=== PATIENT | female | born 1985 | race Caucasian/White ===

== ENCOUNTER 2020-07-25 19:56 | Emergency (ER) | payer SELFPAY ==
[2020-07-25 22:09] LABS: Absolute Lymphocytes (CBC) 2.4 K/uL (0.7-4.9); Basophils % 0.8 % (0-1.3); Hematocrit 39.6 % (36.0-45.0); MPV 9.2 fL (7.6-11.3); RBC Red Blood Cell Count 4.03 M/uL (3.86-4.86)
[2020-07-25 22:22] LABS: BUN Blood Urea Nitrogen 19 mg/dL (7-18); Bicarbonate 27 mmol/L (21-32); Glucose Level 88 mg/dL (74-106); Potassium 3.8 mmol/L (3.5-5.1); Sodium Level 140 mmol/L (136-145); Troponin (Emerg Dept Use Only) < 0.02 ng/mL (0.0-0.045)
--- NOTE | 2020-07-25 23:19 | EDPHYS ---
Physician Documentation [facility] Name: Violeta Richardson Age: 35 yrs Sex: Female : 1985 Arrival Date: 07/25/2020 Time: 20:03 Bed 7 Private MD: ED Physician Jorje Yost HPI: 07/25 22:54 This 35 yrs old Female presents to ER via Ambulatory with complaints of High rn Blood Pressure. 22:54 The patient has elevated blood pressure and discovered this work. Onset: The rn symptoms/episode began/occurred at an unknown time. Modifying factors:. Associated signs and symptoms: Pertinent positives: headache, lightheadedness. Severity of symptoms: At its worst the blood pressure was moderate, in the emergency department the blood pressure is improved. It is unknown whether or not the patient has had similar symptoms in the past. Reports high blood pressure for unknown period of time, noted at work that BP was high, works at [employer], reports mild headache, chest pain, anxiety. Does not take medication for BP. Had moderna shot a few days ago and not sure if any of these symptoms can be attributed to it. Plans to make appt with pcp for BP management, but told by nurse at work to come to ER. Currently feels better. . 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 - Social history:: Smoking status: Patient reports the use of cigarette tobacco products, smokes one-half pack cigarettes per day. - Family history:: not pertinent. - Hospitalizations: : No recent hospitalization is reported. ROS: 22:54 Constitutional: Negative for fever, chills, and weight loss, Eyes: Negative for injury, rn pain, redness, and discharge, ENT: Negative for injury, pain, and discharge, Neck: Negative for injury, pain, and swelling, Cardiovascular: Negative for palpitations, and edema, Respiratory: Negative for cough, wheezing, and pleuritic chest pain, Abdomen/GI: Negative for abdominal pain, nausea, vomiting, diarrhea, and constipation, Back: Negative for injury and pain, : Negative for injury, bleeding, discharge, and swelling, MS/Extremity: Negative for injury and deformity, Skin: Negative for injury, rash, and discoloration, Neuro: Negative for seizure Exam: 22:54 Constitutional: This is a well developed, well nourished patient who is awake, alert, rn and in no acute distress. Head/Face: Normocephalic, atraumatic. Eyes: Pupils equal round and reactive to light, extra-ocular motions intact. Lids and lashes normal. Conjunctiva and sclera are non-icteric and not injected. Cornea within normal limits. Periorbital areas with no swelling, redness, or edema. Neck: Trachea midline, no thyromegaly or masses palpated, and no cervical lymphadenopathy. Supple, full range of motion without nuchal rigidity, or vertebral point tenderness. No Meningismus. Cardiovascular: Regular rate and rhythm. No pulse deficits. Respiratory: No increased work of breathing, no retractions or nasal flaring. Abdomen/GI: Soft, non-tender Skin: Warm, dry with normal turgor. Normal color with no rashes, no lesions, and no evidence of cellulitis. MS/ Extremity: Pulses equal, no cyanosis. Neurovascular intact. Full, normal range of motion. Equal circumference. Neuro: Awake and alert, GCS 15, oriented to person, place, time, and situation. Cranial nerves II-XII grossly intact. Motor strength 5/5 in all extremities. Sensory grossly intact. Cerebellar exam normal. Normal gait. Vital Signs: 20:37 BP 171 / 96; Pulse 97; Resp 19 S; Temp 98.5(TE); Pulse Ox 98.5% on R/A; Weight 52.16 kg ca1 (R); Height 5 ft. 0 in. (152.40 cm) (R); Pain 3/10; 20:37 Body Mass Index 22.46 (52.16 kg, 152.40 cm) ca1 MDM: 21:21 Patient medically screened. rn 23:16 Differential diagnosis: Malignant HTN. Differential diagnosis: anxiety, rn hyperventilation. Data reviewed: vital signs, nurses notes, lab test result(s), EKG, radiologic studies, CT scan, plain films, and as a result, I will discharge patient. Counseling: I had a detailed discussion with the patient and/or guardian regarding: the historical points, exam findings, and any diagnostic results supporting the discharge/admit diagnosis, lab results, radiology results, the need for outpatient follow up, to return to the emergency department if symptoms worsen or persist or if there are any questions or concerns that arise at home. Response to treatment: the patient's symptoms have markedly improved after treatment, and as a result, I will discharge patient. Special discussion: I discussed with the patient/guardian in detail that at this point there is no indication for admission to the hospital. It is understood, however, that if the symptoms persist or worsen the patient needs to return immediately for re-evaluation. Special discussion: Based on the history and exam findings, there is no indication for further emergent testing or inpatient evaluation. I discussed with the patient/guardian the need to see the primary care provider for further evaluation of the symptoms. ED course: Pt improved, ambulatory without difficulty, ct head neg, cxr no acute findings, neg bloodowork and no ischemia on ecg. Will dc home with BP journal and pcp f/u. . 23:18 Counseling: I had a detailed discussion with the patient and/or guardian regarding: the rn presence of at least one elevated blood pressure reading (>120/80) during this emergency department visit. Special discussion: I have referred the patient to see his PCP for further evaluation of high blood pressure. 07/25 21:38 Order name: CBC with Diff; Complete Time: 22:31 rn 07/25 21:38 Order name: Basic Metabolic Panel; Complete Time: 22:31 rn 07/25 21:38 Order name: CT Head Brain wo Cont rn 07/25 21:38 Order name: Troponin (emerg Dept Use Only); Complete Time: 22:31 rn 07/25 21:38 Order name: EKG; Complete Time: 21:39 rn 07/25 21:38 Order name: XRAY Chest (1 view) rn 07/25 21:38 Order name: IV Start; Complete Time: 21:53 rn 07/25 21:38 Order name: EKG - Nurse/Tech; Complete Time: 21:52 rn Administered Medications: No medications were administered Disposition: 07/25/20 23:18 Discharged to Home. Impression: Hypertension, Anxiety disorder, unspecified. - Condition is Stable. - Discharge Instructions: Hypertension, Generalized Anxiety Disorder. - Medication Reconciliation Form, Thank You Letter, Antibiotic Education, Prescription Opioid Use form. - Follow up: Private Physician; When: As needed; Reason: Recheck today's complaints, Re-evaluation by your physician. - Problem is an ongoing problem. - Symptoms have improved. Signatures: Dispatcher [employer] EDJorje Batista MD MD rn Antunez, Elena, RN RN ea Acob, Radha RN TOBIN ca1 Corrections: (The following items were deleted from the chart) 23:26 23:18 07/25/2020 23:18 Discharged to Home. Impression: Hypertension; Anxiety disorder, ea unspecified. Condition is Stable. Forms are Medication Reconciliation Form, Thank You Letter, Antibiotic Education, Prescription Opioid Use. Follow up: Private Physician; When: As needed; Reason: Recheck today's complaints, Re-evaluation by your physician. Problem is an ongoing problem. Symptoms have improved. rn
--- NOTE | 2020-07-25 23:19 | ER ---
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 Ever since, BP has ca1 been high and HR has been high. 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 They said SBP was almost 200. Reports tightness of chest, dizziness and numbness at tips of fingers and mouth. Coronavirus screen: Client denies travel out of the [place] in the last 14 days. At this time, the client does not indicate any symptoms associated with coronavirus-19. Ebola Screen: Patient negative for fever greater than or equal to 101.5 degrees Fahrenheit, and additional compatible Ebola Virus Disease symptoms Patient denies exposure to infectious person. Patient denies travel to an Ebola-affected area in the 21 days before illness onset. No symptoms or risks identified at this time. Initial Sepsis Screen: Does the patient meet any 2 criteria? No. Patient's initial sepsis screen is negative. Does the patient have a suspected source of infection? No. Patient's initial sepsis screen is negative. Risk Assessment: Do you want to hurt yourself or someone else? Patient reports no desire to harm self or others. Onset of symptoms was July 25, 2020. 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 - Social history:: Smoking status: Patient reports the use of cigarette tobacco products, smokes one-half pack cigarettes per day. - Family history:: not pertinent. - Hospitalizations: : No recent hospitalization is reported. Screenin:53 Abuse screen: Denies threats or abuse. Nutritional screening: No deficits noted. ea Tuberculosis screening: No symptoms or risk factors identified. Fall Risk IV access (20 points). Assessment: 21:45 General: Appears in no apparent distress. Behavior is calm, cooperative, appropriate ea for age. Pain: Denies pain. Neuro: Level of Consciousness is awake, alert, obeys commands, Oriented to person, place, time. Cardiovascular: Patient's skin is warm and dry. Respiratory: Airway is patent Respiratory effort is even, unlabored, Respiratory pattern is regular, symmetrical. Derm: Skin is pink, warm \T\ dry. 23:26 Reassessment: Patient and/or family updated on plan of care and expected duration. Pain ea level reassessed. Patient is alert, oriented x 3, equal unlabored respirations, skin warm/dry/pink. Discharge instruction given to patient verbalized the understanding of instruction. Pt left ED ambulatory tolerating well. Vital Signs: 20:37 BP 171 / 96; Pulse 97; Resp 19 S; Temp 98.5(TE); Pulse Ox 98.5% on R/A; Weight 52.16 kg ca1 (R); Height 5 ft. 0 in. (152.40 cm) (R); Pain 3/10; 20:37 Body Mass Index 22.46 (52.16 kg, 152.40 cm) ca1 ED Course: 20:03 Patient arrived in ED. ag3 20:41 Triage completed. ca1 20:42 Arm band placed on right wrist. ca1 21:21 Jorje Yost MD is Attending Physician. rn 21:43 Alexa Mello RN is Primary Nurse. ea 21:52 XRAY Chest (1 view) In Process Unspecified. EDMS 21:53 Patient has correct armband on for positive identification. Bed in low position. Call ea light in reach. Side rails up X2. survey field technician on. Pulse ox on. NIBP on. 21:53 Inserted saline lock: 20 gauge in left antecubital area, using aseptic technique. Blood ea collected. 22:05 CT Head Brain wo Cont In Process Unspecified. EDMS 23:25 No provider procedures requiring assistance completed. IV discontinued, intact, ea bleeding controlled, No redness/swelling at site. Pressure dressing applied. Administered Medications: No medications were administered Outcome: 23:18 Discharge ordered by . rn 23:26 Discharged to home ambulatory. ea 23:26 Condition: stable 23:26 Discharge instructions given to patient, Instructed on discharge instructions, follow up and referral plans. Demonstrated understanding of instructions, follow-up care. 23:26 Patient left the ED. joann Signatures: Dispatcher [employer] EDJorje Batista MD MD rn Antunez, Elena RN RN Dilcia Luz ag3 Radha Gordon RN RN ca1
[2020-07-25 23:42] VITALS: BP 171/96; TEMP 98.5
--- NOTE | 2020-07-26 04:57 | RAD REPORT ---
EXAM DESCRIPTION: [place] Single View07/25/2020 9:52 pm CLINICAL HISTORY: Chest pain COMPARISON: 2008 FINDINGS: The lungs appear clear of acute infiltrate. The heart is normal size IMPRESSION: No acute abnormalities displayed
--- NOTE | 2020-07-26 07:36 | EKG ---
Test Date: 2020-07-25 Test Time: 20:48:44 Professor Of Literature: RAYMOND MEASUREMENT RESULTS: Intervals: Rate: 80 AL: 132 QRSD: 76 QT: 364 QTc: 419 [place]: P: 98 AL: 132 QRS: 74 T: 66 INTERPRETIVE STATEMENTS: Sinus rhythm with premature atrial complexes with aberrant conduction Septal infarct, age undetermined Abnormal ECG Compared to ECG 04/07/2017 16:26:40 Atrial premature complex(es) now present Aberrant conduction of supraventricular beat(s) now present Myocardial infarct finding now present Electronically Signed On 07-26-20 07:35:00 CDT by Marcos Conde
--- NOTE | 2020-07-26 12:31 | RAD REPORT ---
EXAM DESCRIPTION: CT - Head Brain Wo Cont - 07/26/2020 6:24 am CLINICAL HISTORY: 35 years, Female, high blood pressure COMPARISON: None. FINDINGS: Multiple transaxial tomograms of the brain were obtained from the base of the skull to the vertex without contrast. 2-D multiplanar reformats and the coronal and sagittal plane were performed and reviewed. An individualized dose optimization technique, Automated Exposure Control, was utilized for the perfo rmed procedure. Brain parenchyma as well as the ardon and white matter differentiation demonstrate to be unremarkable. There is no midline shift and/or mass effect. There is no evidence for acute hemorrhage and/or infar ction. Lateral ventricles and cisterns displace normal appearance. No intra or extra axial fluid collections were seen. The calvarium is intact with no evidence for fracture. The visualized portions of the paranasal sinuses and orbits demonstrate to be clear. IMPRESSION: NO ACUTE INTRACRANIAL HEMORRHAGE. GROSSLY UNREMARKABLE CT SCAN OF THE HEAD WITHOUT CONTRAST. Electronically signed by: Jax Lubin MD 07/25/2020 10:18 PM CDT Due to temporary technical issues with the PACS/Fluency reporting system, reports are being signed by the in house radiologist without review as a courtesy to ensure prompt reporting. The interpreting r adiologist is fully responsible for the content of the report.
== END 2020-07-25 23:26 | disposition home or self-care (01) ==
LOC: ER 19:56
DX: I10 Essential (primary) hypertension (principal); F41.9 Anxiety disorder, unspecified; F17.210 Nicotine dependence, cigarettes, uncomplicated
CPT/HCPCS: 36415; 70450; 71045; 80048; 84484; 85025; 93005; 99284

== ENCOUNTER 2021-02-06 07:45 | Emergency (ER) | payer SELFPAY ==
[2021-02-06 08:14] LABS: Urine Blood Negative (Negative); Urine Glucose Negative (Negative); Urine Protein Negative (Negative)
[2021-02-06 09:08] LABS: Absolute Lymphocytes (CBC) 1.6 K/uL (0.7-4.9); Basophils % 0.8 % (0-1.3); Hematocrit 45.6 % (36.0-45.0); Lymphocytes % 25.8 % (15.3-44.8); MPV 8.7 fL (7.6-11.3); RBC Red Blood Cell Count 4.82 M/uL (3.86-4.86)
--- NOTE | 2021-02-06 09:12 | ER ---
Nurse's Notes [facility] Name: Violeta Richardson Age: 35 yrs Sex: Female : 1985 Arrival Date: 02/06/2021 Time: 07:50 Bed 15 Private MD: Diagnosis: STD Exposure Presentation: 02/06 07:53 Chief complaint: Patient states: concern about STD. Pt denies any symptoms but reports ll3 current partner is having symptoms. Coronavirus screen: At this time, the client does not indicate any symptoms associated with coronavirus-19. Ebola Screen: No symptoms or risks identified at this time. Initial Sepsis Screen: Does the patient meet any 2 criteria? No. Patient's initial sepsis screen is negative. Does the patient have a suspected source of infection? No. Patient's initial sepsis screen is negative. Risk Assessment: Do you want to hurt yourself or someone else? Patient reports no desire to harm self or others. Onset of symptoms was February 06, 2021. 07:53 Method Of Arrival: Ambulatory 3 07:53 Acuity: BARBARA 4 ll3 Triage Assessment: 08:00 General: Appears in no apparent distress. comfortable, Behavior is cooperative, bp appropriate for age, anxious. Pain: Denies pain. EENT: No deficits noted. Neuro: No deficits noted. Cardiovascular: No deficits noted. Respiratory: No deficits noted. GI: No signs and/or symptoms were reported involving the gastrointestinal system. : No signs and/or symptoms were reported regarding the genitourinary system. Derm: No deficits noted. Musculoskeletal: No deficits noted. 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 - Social history:: Smoking status: Patient reports the use of cigarette tobacco products, smokes one-half pack cigarettes per day. Screenin:00 Abuse screen: Denies threats or abuse. Denies injuries from another. Nutritional bp screening: No deficits noted. Tuberculosis screening: No symptoms or risk factors identified. Fall Risk None identified. Assessment: 08:00 General: SEE TRIAGE NOTE. bp 08:59 Reassessment: No changes from previously documented assessment. Patient and/or family bp updated on plan of care and expected duration. Pain level reassessed. PHLEBOTOMY AT B/S FOR BLOOD DRAW. Vital Signs: 07:53 BP 138 / 108; Pulse 114; Resp 20; Temp 98.7; Pulse Ox 100% ; Weight 52.16 kg; Height 5 ll3 ft. 0 in. (152.40 cm); Pain 04/09; 09:27 BP 137 / 89; Pulse 97; Resp 20; Temp 98.5; Pulse Ox 100% ; bp 07:53 Body Mass Index 22.46 (52.16 kg, 152.40 cm) ll3 ED Course: 07:50 Patient arrived in ED. am2 07:57 Triage completed. ll3 08:00 Kaushik Mccallum, RN is Primary Nurse. bp 08:00 Arm band placed on. ll3 08:00 Patient has correct armband on for positive identification. Bed in low position. Call bp light in reach. Side rails up X2. Adult w/ patient. 08:05 Dejan Ennis MD is Attending Physician. pkl 08:21 Urine collected: clean catch specimen, eamon colored. gd 09:26 CBC with Diff Sent. bp 09:26 No provider procedures requiring assistance completed. Patient did not have IV access bp during this emergency room visit. Administered Medications: No medications were administered Outcome: 09:10 Discharge ordered by . pkl 09:26 Patient left the ED. bp 09:26 Discharged to home ambulatory, with family. bp 09:26 Condition: stable 09:26 Discharge instructions given to patient, Instructed on discharge instructions, follow up and referral plans. Demonstrated understanding of instructions, follow-up care. Signatures: Dejan Ennis MD MD pkDebby Crocker am2 Kaushik Mccallum, RN RN Bradford Morgan Lynsea, RN RN ll3 Corrections: (The following items were deleted from the chart) 08:08 07:53 Acuity: BARBARA 3 ll3 ll3
--- NOTE | 2021-02-06 09:12 | EDPHYS ---
Physician Documentation [facility] Name: Violeta Richardson Age: 35 yrs Sex: Female : 1985 Arrival Date: 02/06/2021 Time: 07:50 Bed 15 Private MD: ED Physician Dejan Ennis HPI: 02/06 08:22 This 35 yrs old Female presents to ER via Ambulatory with complaints of pkl Pelvic Pain, STD Exposure - possible. 08:22 The patient presents with a possible exposure to a sexually transmitted disease, pkl gonorrhea, chlamydia. Onset: The symptoms/episode began/occurred at an unknown time. Associated signs and symptoms: The patient has no apparent associated signs or symptoms. 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 - Social history:: Smoking status: Patient reports the use of cigarette tobacco products, smokes one-half pack cigarettes per day. ROS: 08:25 Negative for pkl 08:25 Constitutional: Negative for fever, chills, and weight loss, Eyes: Negative for injury, pain, redness, and discharge, ENT: Negative for injury, pain, and discharge, Neck: Negative for injury, pain, and swelling, Cardiovascular: Negative for chest pain, palpitations, and edema, Respiratory: Negative for shortness of breath, cough, wheezing, and pleuritic chest pain, Abdomen/GI: Negative for abdominal pain, nausea, vomiting, diarrhea, and constipation, Back: Negative for injury and pain. 08:25 : Negative for urinary symptoms. 08:25 MS/extremity: Negative for acute changes. 08:25 Skin: Negative for rash. 08:25 Neuro: Negative for altered mental status, loss of consciousness. Exam: 08:26 Head/Face: Normocephalic, atraumatic. Eyes: Pupils equal round and reactive to light, pkl extra-ocular motions intact. Lids and lashes normal. Conjunctiva and sclera are non-icteric and not injected. Cornea within normal limits. Periorbital areas with no swelling, redness, or edema. ENT: Nares patent. No nasal discharge, no septal abnormalities noted. Tympanic membranes are normal and external auditory canals are clear. Oropharynx with no redness, swelling, or masses, exudates, or evidence of obstruction, uvula midline. Mucous membranes moist. Neck: Trachea midline, no thyromegaly or masses palpated, and no cervical lymphadenopathy. Supple, full range of motion without nuchal rigidity, or vertebral point tenderness. No Meningismus. Chest/axilla: Normal chest wall appearance and motion. Nontender with no deformity. No lesions are appreciated. Cardiovascular: Regular rate and rhythm with a normal S1 and S2. No gallops, murmurs, or rubs. Normal PMI, no JVD. No pulse deficits. Respiratory: Lungs have equal breath sounds bilaterally, clear to auscultation and percussion. No rales, rhonchi or wheezes noted. No increased work of breathing, no retractions or nasal flaring. Abdomen/GI: Soft, non-tender, with normal bowel sounds. No distension or tympany. No guarding or rebound. No evidence of tenderness throughout. Back: No spinal tenderness. No costovertebral tenderness. Full range of motion. Skin: Warm, dry with normal turgor. Normal color with no rashes, no lesions, and no evidence of cellulitis. MS/ Extremity: Pulses equal, no cyanosis. Neurovascular intact. Full, normal range of motion. Neuro: Awake and alert, GCS 15, oriented to person, place, time, and situation. Cranial nerves II-XII grossly intact. Motor strength 5/5 in all extremities. Sensory grossly intact. Cerebellar exam normal. Normal gait. Vital Signs: 07:53 BP 138 / 108; Pulse 114; Resp 20; Temp 98.7; Pulse Ox 100% ; Weight 52.16 kg; Height 5 ll3 ft. 0 in. (152.40 cm); Pain 04/09; 09:27 BP 137 / 89; Pulse 97; Resp 20; Temp 98.5; Pulse Ox 100% ; bp 07:53 Body Mass Index 22.46 (52.16 kg, 152.40 cm) ll3 MDM: 08:05 Patient medically screened. pkl 09:10 Data reviewed: vital signs, nurses notes, lab test result(s). pkl 02/06 08:14 Order name: Urine Dipstick-Ancillary; Complete Time: 08:15 EDMS 02/06 08:15 Order name: Urine --Ancillary (enter results); Complete Time: 08:32 bd 02/06 08:13 Order name: Urine Dipstick-Ancillary (obtain specimen); Complete Time: 08:25 bp 02/06 08:16 Order name: CBC with Diff pkl 02/06 08:17 Order name: CBC with Automated Diff; Complete Time: 09:11 EDMS 02/06 08:19 Order name: GC (Jorden/Chl) Probe URINE EDMS 02/06 08:13 Order name: Urine Test (obtain specimen); Complete Time: 08:25 bp Administered Medications: No medications were administered Disposition Summary: 02/06/21 09:10 Discharge Ordered Location: Home pkl Problem: new pkl Symptoms: have improved pkl Condition: Stable pkl Diagnosis - STD Exposure pkl Followup: pkl - With: Private Physician - When: 2 - 3 days - Reason: Re-evaluation by your physician Discharge Instructions: - Discharge Summary Sheet iw Forms: - Medication Reconciliation Form pkl - Thank You Letter pkl - Antibiotic Education pkl - Prescription Opioid Use pkl - Work release form iw - Family Work Release iw Signatures: Dispatcher [employer] Dejan Olvera MD MD pkl Kaushik Mccallum, RN RN bp Eliazar Bro RN RN ll3
[2021-02-06 09:32] VITALS: BP 138/108; TEMP 98.7; O2SAT 100
[2021-02-11 07:34] LABS: C.trachomatis RNA,TMA Not Detected (Not Detected)
== END 2021-02-06 09:26 | disposition home or self-care (01) ==
LOC: ER 07:45
DX: R10.2 Pelvic and perineal pain (principal); Z20.2 Contact with and (suspected) exposure to infections with a predominantly sexual mode of transmission; Z88.6 Allergy status to analgesic agent; I10 Essential (primary) hypertension; F17.210 Nicotine dependence, cigarettes, uncomplicated
CPT/HCPCS: 36415; 81003; 81025; 85025; 87490; 87590; 99283

== ENCOUNTER 2021-11-03 10:40 | Emergency (ER) | payer SELFPAY ==
[2021-11-03 11:35] LABS: Urine Blood Negative (Negative); Urine Glucose Negative (Negative); Urine Protein Trace (Negative); Urine Specific Gravity >=1.030 (1.005-1.030)
[2021-11-03] MEDS ORDERED: NA CHLORIDE 0.9% 1,000 ML ONE (11:36)
[2021-11-03] MEDS ORDERED: ASPIRIN EC 81 MG TAB PO ONE (11:36)
[2021-11-03] MEDS ORDERED: ASPIRIN 81 MG CHEWABLE TABLET ONE (11:37)
[2021-11-03 12:02] LABS: Hematocrit 40.8 % (36.0-45.0); Lymphocytes % 22.4 % (15.3-44.8); MCV 92.7 fL (80-100); MPV 8.9 fL (7.6-11.3); Protime INR 0.99; RBC Red Blood Cell Count 4.41 M/uL (3.86-4.86)
[2021-11-03] MEDS ORDERED: METOPROLOL TAR 25 MG TAB ONE (12:03)
[2021-11-03 12:06] LABS: Barbiturates NEGATIVE (NEGATIVE); Benzodiazepines NEGATIVE (NEGATIVE); Cocaine NEGATIVE (NEGATIVE); METHAMPHETAM NEGATIVE (NEGATIVE); Methadone NEGATIVE (NEGATIVE); Opiates NEGATIVE (NEGATIVE); Phencyclidine NEGATIVE (NEGATIVE); THC Cannibis POSITIVE (NEGATIVE)
[2021-11-03 12:21] LABS: ALT/SGPT 19 U/L (12-78); AST/SGOT 12 U/L (15-37); Albumin 3.8 g/dL (3.4-5.0); Alkaline Phosphatase 69 U/L (45-117); BUN Blood Urea Nitrogen 14 mg/dL (7-18); Bicarbonate 28 mmol/L (21-32); Bilirubin Total 0.2 mg/dL (0.2-1.0); Glomerular Filtration Rate 118 ml/min (=/>90); Glucose Level 89 mg/dL (74-106); Lipase 64 U/L (73-393); Magnesium 2.1 mg/dL (1.8-2.4); NT PRO-BNP 47 pg/mL (<125); Potassium 4.1 mmol/L (3.5-5.1); Sodium Level 139 mmol/L (136-145); Troponin High Sensitivity 4.4 pg/mL (<58.9)
[2021-11-03 12:25] LABS: Bilirubin Direct < 0.1 mg/dL (0-0.2)
[2021-11-03 12:25] LABS: SARS-CoV-2 Antigen Rapid Res Negative (Negative)
--- NOTE | 2021-11-03 12:25 | RAD REPORT ---
EXAM DESCRIPTION: RAD - Chest Single View - 11/03/2021 12:02 pm CLINICAL HISTORY: CHEST PAIN Chest pain. COMPARISON: Chest Single View dated 07/25/2020; CHEST PA AND LAT 2 VIEW dated 03/02/2009 FINDINGS: Portable technique limits examination quality. The lungs are grossly clear. The heart is normal in size. No displaced fractures. IMPRESSION: No acute intrathoracic process suspected.
--- NOTE | 2021-11-03 12:32 | EDPHYS ---
Physician Documentation [facility] Name: Violeta Richardson Age: 36 yrs Sex: Female : 1985 Arrival Date: 11/03/2021 Time: 10:43 Bed 16 Private MD: None, None ED Physician Mich Franco HPI: 11/03 11:32 This 36 yrs old Female presents to ER via Ambulatory with complaints of High gwen Blood Pressure, Chest Pain, Arm Pain. 11:32 The patient has elevated blood pressure and discovered this at home. Onset: The gwen symptoms/episode began/occurred this morning. Modifying factors: The symptoms are aggravated by movement, The symptoms are alleviated by remaining still. Associated signs and symptoms: The patient has no apparent associated signs or symptoms. Severity of symptoms: At its worst the blood pressure was moderate, in the emergency department the blood pressure is unchanged. The patient has not experienced similar symptoms in the past. 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 - Social history:: Smoking status: Patient reports the use of cigarette tobacco products, smokes one-half pack cigarettes per day. ROS: 11:42 Constitutional: Negative for fever, chills, and weight loss, Eyes: Negative for injury, gwen pain, redness, and discharge, ENT: Negative for injury, pain, and discharge, Neck: Negative for injury, pain, and swelling, Respiratory: Negative for shortness of breath, cough, wheezing, and pleuritic chest pain, Abdomen/GI: Negative for abdominal pain, nausea, vomiting, diarrhea, and constipation, Back: Negative for injury and pain, : Negative for injury, bleeding, discharge, and swelling, MS/Extremity: Negative for injury and deformity, Skin: Negative for injury, rash, and discoloration, Neuro: Negative for headache, weakness, numbness, tingling, and seizure, Psych: Negative for depression, anxiety, suicide ideation, homicidal ideation, and hallucinations, Allergy/Immunology: Negative for hives, rash, and allergies, Endocrine: Negative for neck swelling, polydipsia, polyuria, polyphagia, and marked weight changes, Hematologic/Lymphatic: Negative for swollen nodes, abnormal bleeding, and unusual bruising. 11:42 Cardiovascular: Positive for chest pain, of the anterior aspect of left upper chest. Exam: 11:42 Constitutional: This is a well developed, well nourished patient who is awake, alert, gwen and in no acute distress. Head/Face: Normocephalic, atraumatic. Eyes: Pupils equal round and reactive to light, extra-ocular motions intact. Lids and lashes normal. Conjunctiva and sclera are non-icteric and not injected. Cornea within normal limits. Periorbital areas with no swelling, redness, or edema. ENT: Nares patent. No nasal discharge, no septal abnormalities noted. Tympanic membranes are normal and external auditory canals are clear. Oropharynx with no redness, swelling, or masses, exudates, or evidence of obstruction, uvula midline. Mucous membranes moist. Neck: Trachea midline, no thyromegaly or masses palpated, and no cervical lymphadenopathy. Supple, full range of motion without nuchal rigidity, or vertebral point tenderness. No Meningismus. Cardiovascular: Regular rate and rhythm with a normal S1 and S2. No gallops, murmurs, or rubs. Normal PMI, no JVD. No pulse deficits. Respiratory: Lungs have equal breath sounds bilaterally, clear to auscultation and percussion. No rales, rhonchi or wheezes noted. No increased work of breathing, no retractions or nasal flaring. Abdomen/GI: Soft, non-tender, with normal bowel sounds. No distension or tympany. No guarding or rebound. No evidence of tenderness throughout. Back: No spinal tenderness. No costovertebral tenderness. Full range of motion. Skin: Warm, dry with normal turgor. Normal color with no rashes, no lesions, and no evidence of cellulitis. MS/ Extremity: Pulses equal, no cyanosis. Neurovascular intact. Full, normal range of motion. Neuro: Awake and alert, GCS 15, oriented to person, place, time, and situation. Cranial nerves II-XII grossly intact. Motor strength 5/5 in all extremities. Sensory grossly intact. Cerebellar exam normal. Normal gait. Psych: Awake, alert, with orientation to person, place and time. Behavior, mood, and affect are within normal limits. 11:42 Chest/axilla: Inspection: normal, Palpation: tenderness, that is mild, of the anterior aspect of left upper chest, Axilla: are normal, no acute changes. 11:42 ECG was reviewed by the Attending Physician. Vital Signs: 10:52 BP 143 / 89; Pulse 72; Resp 17; Temp 98.4; Pulse Ox 99% ; Weight 51.26 kg; Height 5 ft. ap3 0 in. (152.40 cm); 12:15 BP 136 / 85; Pulse 62; Resp 17 S; Pulse Ox 98% on R/A; Pain 0/10; jg9 10:52 Body Mass Index 22.07 (51.26 kg, 152.40 cm) ap3 MDM: 10:51 Patient medically screened. gwen 11:44 Differential diagnosis: abnormal EKG, acute myocardial infarction, acute pericarditis, gwen anxiety, coronary artery disease chest wall pain. HEART Score: History: Slightly Suspicious (0), ECG: Normal (0), Age: < or = 45 years (0), Risk Factors: > or = 3 Risk factors for atherosclerotic disease (2), [Hypertension] [Active Smoker] [+ Family HX] Troponin: < or = 1 x Normal Limit (0). The patient's deep vein thrombosis risk score was calculated as follows: Total Score: 0. This patient was found to be at low risk for a deep vein thrombosis by using the Well's assessment criteria. The patient's pulmonary embolism risk score was calculated as follows: Total Score: 0-2 points. This patient was found to be at low risk for a pulmonary embolism by using the Well's assessment criteria. MIKE Risk Score: 1 - Three or more CAD risk factors, TOTAL SCORE = 1. Data reviewed: vital signs, nurses notes, lab test result(s), EKG, radiologic studies, plain films. Data interpreted: monitor tech: rate is 72 beats/min, rhythm is regular, Pulse oximetry: on room air is 99 %. Test interpretation: by ED physician or midlevel provider: ECG, plain radiologic studies. Counseling: I had a detailed discussion with the patient and/or guardian regarding: the historical points, exam findings, and any diagnostic results supporting the discharge/admit diagnosis, lab results, radiology results, the need for outpatient follow up, for definitive care, a route rider, a family practitioner. 11/03 10:56 Order name: SARS RAPID; Complete Time: 12:30 [facility] 11/03 11:36 Order name: Urine Dipstick-Ancillary; Complete Time: 12:30 EDMS 11/03 11:40 Order name: Urine Dipstick-Ancillary EDMS 11/03 10:56 Order name: XRAY Chest (1 view); Complete Time: 12:30 [facility] 11/03 10:56 Order name: EKG; Complete Time: 10:57 [facility] 11/03 10:56 Order name: Cardiac monitoring; Complete Time: 10:57 [facility] 11/03 11:40 Order name: Basic Metabolic Panel; Complete Time: 12:30 EDMS 11/03 11:40 Order name: Liver (Hepatic) Function; Complete Time: 12:30 EDMS 11/03 11:40 Order name: Troponin High Sensitivity; Complete Time: 12:30 EDMS 11/03 11:40 Order name: NT PRO-BNP; Complete Time: 12:30 EDMS 11/03 11:40 Order name: Magnesium; Complete Time: 12:30 EDMS 11/03 11:40 Order name: Lipase; Complete Time: 12:30 EDMS 11/03 11:40 Order name: CBC with Automated Diff; Complete Time: 12:30 EDMS 11/03 11:40 Order name: Protime (+INR); Complete Time: 12:30 EDMS 11/03 11:40 Order name: D-Dimer; Complete Time: 12:30 EDMS 11/03 11:40 Order name: Urine Drug Screen; Complete Time: 12:30 EDMS 11/03 10:56 Order name: EKG - Nurse/Tech; Complete Time: 10:57 [facility] 11/03 10:56 Order name: IV Saline Lock; Complete Time: 11:19 [facility] 11/03 10:56 Order name: Labs collected and sent; Complete Time: 11:19 [facility] 11/03 10:56 Order name: O2 Per Protocol; Complete Time: 10:57 [facility] 11/03 10:56 Order name: O2 Sat Monitoring; Complete Time: 10:57 [facility] 11/03 10:56 Order name: Urine Dipstick-Ancillary (obtain specimen); Complete Time: 11:34 [facility] 11/03 10:56 Order name: Urine Test (obtain specimen); Complete Time: 11:34 gwen EC:42 Rate is 72 beats/min. Rhythm is regular. QRS [place] is Normal. DC interval is normal. QRS gwen interval is normal. QT interval is normal. No Q waves. T waves are Normal. No ST changes noted. Clinical impression: Normal ECG and No evidence of ischemia. Interpreted by me. Reviewed by me. Administered Medications: 11:48 Drug: NS 0.9% 1000 ml Route: IV; Rate: 125 ml/hr; Site: left antecubital; jg9 12:56 Follow up: IV Status: Completed infusion; IV Intake: 800ml jg9 11:48 Not Given (Patient Refused): Aspirin Chewable Tablet 162 mg PO once jg9 11:59 Drug: ToPROL XL (metoprolol SUCCINATE) 25 mg Route: PO; jg9 12:42 Follow up: Response: No adverse reaction jg9 Point of Care Testing: Urine : 11:59 hCG Reading: Negative; Control Reading: Positive; jg9 Disposition Summary: 11/03/21 12:31 Discharge Ordered Location: Home gwen Problem: new gwen Symptoms: have improved gwen Condition: Stable gwen Diagnosis - Essential (primary) hypertension gwen - Tobacco abuse counseling gwen - Tobacco use gwen - Chest pain, unspecified gwen Followup: gwen - With: Private Physician - When: 2 - 3 days - Reason: Recheck today's complaints, Continuance of care, Re-evaluation by your physician Followup: gwen - With: - When: 2 - 3 days - Reason: Recheck today's complaints, Continuance of care, Re-evaluation by your physician Discharge Instructions: - Discharge Summary Sheet gwen - Nonspecific Chest Pain, Adult gwen - Chest Wall Pain gwen - Hypertension, Adult gwen - Steps to Quit Smoking gwen - Health Risks of Smoking gwen - Chest Wall Pain, Wrgw-ew-Ahny gwen - Nonspecific Chest Pain, Adult, Dkns-om-Ratq gwen - Hypertension, Adult, Hypo-vt-Kjna gwen - How to Take Your Blood Pressure, Jsax-ju-Qtha gwen - Aspirin and Your Heart gwen - Managing Your Hypertension gwen - Steps to Quit Smoking, [id number] gwen Forms: - Medication Reconciliation Form gwen - Thank You Letter gwen - Antibiotic Education gwen - Prescription Opioid Use gwen Prescriptions: - Toprol XL 25 mg Oral Tablet - take 1 tablet by ORAL route once daily; 20 tablet; Refills: 0, Product gwen Selection Permitted Signatures: Dispatcher [employer] Mich Kelley MD MD cha Prokisch, Amanda RN RN ap3 Keiry Lynn RN RN jg9
--- NOTE | 2021-11-03 12:32 | ER ---
Nurse's Notes [facility] Name: Violeta Richardson Age: 36 yrs Sex: Female : 1985 Arrival Date: 11/03/2021 Time: 10:43 Bed 16 Private MD: None, None Diagnosis: Essential (primary) hypertension;Tobacco abuse counseling;Tobacco use;Chest pain, unspecified Presentation: 11/03 10:52 Chief complaint: Patient states: she started having chest pain this morning when ap3 walking to work at approx 0600. patient states the pain is primarily in her left upper chest and radiates down to her left arm and left fingers. patient states that when she arrived to work, she had her BP taken and the readings were 140s/110's for approx 2 hours. 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 Coronavirus screen: At this time, the client does not indicate any symptoms associated with coronavirus-19. Ebola Screen: No symptoms or risks identified at this time. Initial Sepsis Screen: Does the patient meet any 2 criteria? No. Patient's initial sepsis screen is negative. Does the patient have a suspected source of infection? No. Patient's initial sepsis screen is negative. Risk Assessment: Do you want to hurt yourself or someone else? Patient reports no desire to harm self or others. Onset of symptoms was November 03, 2021 at 06:00. 10:52 Method Of Arrival: Ambulatory ap3 10:52 Acuity: BARBARA 2 ap3 Triage Assessment: 10:54 General: Appears comfortable, Behavior is cooperative, anxious. Pain: Complains of pain ap3 in anterior aspect of left upper chest Pain radiates to left arm Pain began gradually, 0600 this morning. Neuro: Level of Consciousness is awake, alert, obeys commands, Oriented to person, place, time, situation, Appropriate for age Moves all extremities. Speech is normal, Facial symmetry appears normal. Cardiovascular: Reports chest pain. Respiratory: Airway is patent Respiratory effort is even, unlabored, Respiratory pattern is regular, symmetrical. 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 - Social history:: Smoking status: Patient reports the use of cigarette tobacco products, smokes one-half pack cigarettes per day. Screenin:55 Abuse screen: Denies threats or abuse. Nutritional screening: No deficits noted. ap3 Tuberculosis screening: No symptoms or risk factors identified. 12:42 Fall Risk None identified. jg9 Assessment: 11:00 Reassessment: No changes from previously documented assessment. Patient and/or family jg9 updated on plan of care and expected duration. Pain level reassessed. Patient is alert, oriented x 3, equal unlabored respirations, skin warm/dry/pink. patient resting in bed, NAD, VSS. 12:00 Pain:. Pain: Complains of pain in left arm and chest and anterior aspect of left upper jg9 chest Pain currently is 5 out of 10 on a pain scale. 12:40 Reassessment: Patient and/or family updated on plan of care and expected duration. Pain jg9 level reassessed. Patient is alert, oriented x 3, equal unlabored respirations, skin warm/dry/pink. Patient states feeling better. Patient states symptoms have improved. Vital Signs: 10:52 BP 143 / 89; Pulse 72; Resp 17; Temp 98.4; Pulse Ox 99% ; Weight 51.26 kg; Height 5 ft. ap3 0 in. (152.40 cm); 12:15 BP 136 / 85; Pulse 62; Resp 17 S; Pulse Ox 98% on R/A; Pain 0/10; jg9 10:52 Body Mass Index 22.07 (51.26 kg, 152.40 cm) ap3 ED Course: 10:43 Patient arrived in ED. as 10:43 None, None is Private Physician. as 10:51 Mich Franco MD is Attending Physician. gwen 10:53 Triage completed. ap3 10:55 Arm band placed on right wrist. ap3 10:55 Patient has correct armband on for positive identification. Bed in low position. Call ap3 light in reach. Side rails up X 1. medical resident on. Pulse ox on. NIBP on. Door closed. Noise minimized. 10:55 Patient maintains SpO2 saturation greater than 95% on room air. ap3 10:55 EKG done, by ED staff, reviewed by Mich Franco MD. ap3 11:10 Keiry Lynn, RN is Primary Nurse. jg9 11:19 Inserted saline lock: 22 gauge in left antecubital area, using aseptic technique. Blood jg9 collected. 11:48 Urine Dipstick-Ancillary Sent. jg9 12:00 No apparent distress. Resting quietly. jg9 12:04 XRAY Chest (1 view) In Process Unspecified. EDPR 12:31 Marcos Conde MD is Referral Physician. [facility] 12:42 No provider procedures requiring assistance completed. jg9 12:56 IV discontinued. jg9 Administered Medications: 11:48 Drug: NS 0.9% 1000 ml Route: IV; Rate: 125 ml/hr; Site: left antecubital; jg9 12:56 Follow up: IV Status: Completed infusion; IV Intake: 800ml jg9 11:48 Not Given (Patient Refused): Aspirin Chewable Tablet 162 mg PO once jg9 11:59 Drug: ToPROL XL (metoprolol SUCCINATE) 25 mg Route: PO; jg9 12:42 Follow up: Response: No adverse reaction jg9 Medication: 12:42 VIS not applicable for this client. jg9 Point of Care Testing: Urine : 11:59 hCG Reading: Negative; Control Reading: Positive; jg9 Intake: 12:56 IV: 800ml; Total: 800ml. jg9 Outcome: 12:31 Discharge ordered by . [facility] 12:56 Discharged to home ambulatory. jg9 12:56 Condition: stable 12:56 Discharge instructions given to patient, Instructed on discharge instructions, follow up and referral plans. Demonstrated understanding of instructions, follow-up care, Prescriptions given X 1. 12:57 Patient left the ED. jg9 Signatures: Dispatcher [employer] [facility] Mich Franco MD MD cha Martinez, Amelia as Prokisch, Amanda RN RN ap3 Keiry Lynn, TOBIN RN jg9
[2021-11-03 13:47] VITALS: TEMP 98.4
[2021-11-03 13:49] VITALS: BP 136/85; O2SAT 98
--- NOTE | 2021-11-05 13:49 | EKG ---
Test Date: 2021-11-03 Test Time: 10:55:11 Plating Equipment Tender: ZEINA MEASUREMENT RESULTS: Intervals: Rate: 72 GA: 128 QRSD: 86 QT: 394 QTc: 431 [place]: P: 81 GA: 128 QRS: 76 T: 79 INTERPRETIVE STATEMENTS: Normal sinus rhythm Normal ECG Compared to ECG 07/25/2020 20:48:44 Atrial premature complex(es) no longer present Aberrant conduction of supraventricular beat(s) no longer present Myocardial infarct finding no longer present Electronically Signed On 11-05-21 13:46:06 CDT by Clay Corley
== END 2021-11-03 12:57 | disposition home or self-care (01) ==
LOC: ER 10:40
DX: R07.89 Other chest pain (principal); I10 Essential (primary) hypertension; Z71.6 Tobacco abuse counseling; Z72.0 Tobacco use; Z88.5 Allergy status to narcotic agent; Z20.822 Contact with and (suspected) exposure to COVID-19
CPT/HCPCS: 36415; 71045; 80048; 80076; 80307; 81003; 83690; 83735; 83880; 84484; 85025; 85379; 85610; 87811; 93005; 96360; 99285; J7030

== ENCOUNTER 2023-03-29 18:00 | Inpatient (IN) | payer SELFPAY ==
[2023-03-29] MEDS ORDERED: ONDANSETRON 4 MG/2 ML VIAL ONE (20:06)
[2023-03-29] MEDS ORDERED: KETOROLAC 30 MG/ML INJ ONE (20:06)
[2023-03-29] MEDS ORDERED: NA CHLORIDE 0.9% 1,000 ML ONE ×2 (20:07→23:00)
[2023-03-29 20:27] LABS: Urine Bacteria None Seen /HPF (<20); Urine Bilirubin NEGATIVE (Negative); Urine Blood 3+ (Negative); Urine Clarity Extremely Turbid (Clear); Urine Color Light-Orange (Yellow); Urine Glucose NEGATIVE (Negative); Urine Protein 2+ (Negative); Urine RBC 21-50 /HPF (None Seen); Urine Urobilinogen 2+ (Normal); Urine WBC Clump Many /HPF (None Seen)
[2023-03-29 20:27] LABS: Absolute Lymphocytes (CBC) 0.6 K/uL (0.7-4.9); Hematocrit 37.8 % (36.0-45.0); Lymphocytes % 2.9 % (15.3-44.8); MCV 90.7 fL (80-100); Platelets 326 thou/uL (152-406); RBC Red Blood Cell Count 4.17 M/uL (3.86-4.86)
[2023-03-29 20:42] LABS: Protime INR 1.2
[2023-03-29 20:45] LABS: Urine Mucus Slight /HPF (None Seen)
[2023-03-29 20:45] LABS: Albumin 3.3 g/dL (3.4-5.0); Bilirubin Total 0.6 mg/dL (0.2-1.0); Protein, Total 7.8 g/dL (6.4-8.2)
[2023-03-29 21:30] LABS: Platelet Estimate ADEQ
[2023-03-29 21:31] LABS: Blood Morphology Comment NOT SEEN (NOT SEEN)
--- NOTE | 2023-03-29 21:40 | RAD REPORT ---
EXAM DESCRIPTION: CT - Abdomen Pelvis W Contrast - 03/29/2023 9:06 pm CLINICAL HISTORY: Abdominal pain COMPARISON: 2011 TECHNIQUE: Computed axial tomography of the abdomen pelvis was obtained. 100 cc Isovue-300 was admin istered intravenously. Oral contrast was not requested which limits evaluation of bowel and appendix All CT scans are performed using dose optimization technique as appropriate and may include automated exposure control or mA/KV adjustment according to patient size. FINDINGS: Several low-density areas right kidney reaching the periphery. Enhancement of the wall of the right renal pelvis and right ureter. Bladder wall thickened Small hepatic cysts. Prominence left lobe of liver. Spleen, pancreas and adrenals are unremarkable. No evidence of diverticulitis. A 2 centimeter left ovarian cyst without significant free fluid. No followup imaging recommended. IMPRESSION: Several low-density areas right kidney reaching the periphery. Enhancement of the wall o f the right renal pelvis and right ureter. These findings likely indicate an ascending urinary tract infection / pyelonephritis
[2023-03-29] MEDS ORDERED: NA CHLORIDE 0.9% 50 ML ONE (21:52)
[2023-03-29] MEDS ORDERED: CEFTRIAXONE 1000 MG/VIAL ONE (21:52)
--- NOTE | 2023-03-29 21:56 | ER ---
Nurse's Notes [facility] Name: Violeta Richardson Age: 38 yrs Sex: Female : 1985 Arrival Date: 03/29/2023 Time: 18:00 Bed 6 Private MD: Diagnosis: Pyelonephritis acute;Sepsis, unspecified organism Presentation: 03/29 19:15 Chief complaint: Patient states: 6 DAYS SUPRAPUBIC PAIN. Coronavirus screen: At this hb time, the client does not indicate any symptoms associated with coronavirus-19. Ebola Screen: No symptoms or risks identified at this time. Initial Sepsis Screen: Does the patient meet any 2 criteria? No. Patient's initial sepsis screen is negative. Does the patient have a suspected source of infection? No. Patient's initial sepsis screen is negative. Risk Assessment: Do you want to hurt yourself or someone else? Patient reports no desire to harm self or others. Onset of symptoms is unknown. 19:15 Method Of Arrival: Ambulatory hb 19:15 Acuity: BARBARA 3 hb Triage Assessment: 23:20 General: Appears in no apparent distress. uncomfortable, Behavior is cooperative, nw1 combative. GI: No deficits noted. Reports upper abdominal pain, nausea, vomiting. Historical: - Allergies: 19:17 tramadol; hb - PMHx: 19:17 Hypertension; hb - Immunization history:: Adult Immunizations up to date. - Social history:: Smoking status: Patient denies any tobacco usage or history of. Screenin:14 [facility] ED Fall Risk Assessment (Adult) History of falling in the last 3 months, nw1 including since admission No falls in past 3 months (0 pts). [facility] ED Fall Risk Assessment (Adult) Confusion or Disorientation No (0 pts) Intoxicated or Sedated No (0 pts) Impaired Gait No (0 pts) Mobility Assist Device Used No (0 pt) Altered Elimination No (0 pt) Score/Fall Risk Level 0 - 2 = Low Risk Oriented to surroundings, Maintained a safe environment, Educated pt \\T\\ family on fall prevention, incl call for assistance when getting out of bed, Assessed \\T\\ reinforced patient's understanding of fall precautions, Provided non-skid footwear. Abuse screen: Denies threats or abuse. Denies injuries from another. Nutritional screening: No deficits noted. Tuberculosis screening: No symptoms or risk factors identified. Assessment: 19:50 Reassessment: Pt brought to chair holding area to get blood work. Pt noted with cough nw1 and this nurse requested for patient to wear mask. Pt noted upset and angry with the request to wear a mask. Explained to patient the need for mask and patient verbalized understanding for need of IV. Pt requested for boyfriend to come back and notified that he can come back once placed in room. 23:14 Reassessment: Pt noted having an attitude when asked to have a mask on. Pt addressed on nw1 attitude in which she stated she does not want to wear the mask. Notified patient of need to wear mask for my safety as well as hers and patient put on mask, still seemingly upset. Pt also noted drinking sprite brought in by patient without any vomiting noted. Pain: Complains of pain in suprapubic area. GI: Abdomen is flat, Bowel sounds present X 4 quads. Reports lower abdominal pain, intolerance of fluids, intolerance of food. 03/30 01:30 Reassessment: In to administer Tussinex 5ml, tylenol 650mg PO, and IVF of D5 1/2NS. Pt la4 asked if she wanted the medication due to her rude demeanor after I took her temperature earlier and she shoved the thermometer in my hand after checking her temp. Patient stated that she wanted the medication. Attempted to hand the patient the tussinex as I asked if she wanted the medication. Even though the patient stated yes she did not take the medication out of my hand even though I was attempting to hand it to her. The medication was them placed on the bedside table for the patient. The tylenol was also opened and the patient asked if she wanted it in which she replied, " Of course I want my temperature to go down." The tylenol was opened and placed in a medication cup and placed at pt bedside on bedside table. The patient then stated I didn't have to ask if she wanted the medication and began to become more rude. The patient was notified that i had not been in her room and that I was assisting her nurse. charge nurse called to assist and complete hanging pt IVF and notified of where oral medications were left for patient due to negative interactions with patient. Patient finally took medication when charge nurse came into room. Vital Signs: 03/29 19:15 BP 123 / 98; Pulse 127; Resp 16; Temp 99.9; Pulse Ox 100% ; Weight 47.63 kg; Height 5 hb ft. 1 in. ; 21:58 BP 102 / 66; Pulse 97; Temp 98.8(O); Pulse Ox 100% ; nw1 23:21 BP 119 / 84; Pulse 111; Pulse Ox 100% ; nw1 03/30 01:39 Pulse 102; Temp 102.7; Pulse Ox 97% ; la4 03/29 19:15 Body Mass Index 19.84 (47.63 kg, 154.94 cm) hb Reena Coma Score: 03/29 23:14 Eye Response: spontaneous(4). Motor Response: obeys commands(6). Verbal Response: nw1 oriented(5). Total: 15. ED Course: 18:03 Patient arrived in ED. ae5 18:06 [facility]C [facility] kb 18:06 Jorje Yost MD is Attending Physician. kb 19:17 Triage completed. hb 19:18 Arm band placed on. hb 20:04 Blood Culture Adult (2) Sent. nw1 20:04 Urinalysis w/ reflexes Sent. nw1 20:18 Deana Santos, RN is Primary Nurse. nw1 20:20 CBC with Diff Sent. nw1 20:20 CMP Sent. nw1 20:20 Lactate w/ 2H reflex if indic. Sent. nw1 20:20 Protime (+inr) Sent. nw1 20:20 Ptt, Activated Sent. nw1 20:20 Urinalysis w/ reflexes Sent. nw1 21:08 CT Abd/Pelvis - IV Contrast Only In Process Unspecified. EDMS 21:55 Cirilo Rodríguez MD is Hospitalizing Provider. kb 23:14 Patient has correct armband on for positive identification. Placed in gown. Bed in low nw1 position. Call light in reach. Side rails up X2. Provided Education on: POC. Client placed on continuous cardiac and pulse oximetry monitoring. NIBP monitoring applied. monitor technician on. Pulse ox on. NIBP on. Door closed. Lights dimmed. Warm blanket given. 23:14 No provider procedures requiring assistance completed. Inserted saline lock: 20 gauge nw1 in left wrist, using aseptic technique. Blood collected. 03/30 01:21 Flu Sent. nw1 01:21 SARS-COV-2 RT PCR Sent. nw 01:31 Attending Physician role handed off by Jorje Yost MD ec2 01:31 David Lara MD is Attending Physician. ec2 01:37 Jorje Yost MD is Attending Physician. ec2 02:25 Patient admitted, IV remains in place. km8 Administered Medications: 03/29 20:19 Drug: NS 0.9% IV 1000 ml IV at 1000 ml once Route: IV; Rate: 1000 ml; Site: right nw1 forearm; 20:45 Follow up: Response: No adverse reaction; IV Status: Completed infusion cp4 20:19 Drug: Ondansetron IVP 4 mg IVP once; over 2 minutes Route: IVP; Site: right forearm; nw1 20:44 Follow up: Response: No adverse reaction cp4 20:19 Drug: Ketorolac IVP 15 mg IVP once Route: IVP; Site: right wrist; nw1 20:44 Follow up: Response: No adverse reaction cp4 21:56 Drug: Rocephin IV 1 grams IV at calculated rate once; Given slow IV push per pharmacy nw instructions Route: IV; Rate: calculated rate; Site: left forearm; 03/30 02:21 Follow up: IV Status: Completed infusion 8 03/29 23:14 Drug: Potassium Chloride IV 20 mEq IV at calculated rate once; administer over 1-2 nw1 hours Route: IV; Rate: calculated rate; Site: left wrist; 03/30 02:20 Follow up: IV Status: Completed infusion 8 03/29 23:14 Drug: NS 0.9% IV 1000 ml IV at 125 ml/hr continuous Route: IV; Rate: 125 ml/hr; Site: nw1 left wrist; 03/30 02:21 Follow up: IV Status: Infusion continued upon admission km8 Medication: 03/29 23:14 VIS not applicable for this client. nw1 Outcome: 21:55 Decision to Hospitalize by Provider. 03/30 02:25 Admitted to Med/surg km8 Condition: stable Instructed on the need for admit, Demonstrated understanding of instructions, 18:34 Patient left the ED. iw Signatures: Dispatcher [facility] Taylor Medina, SHARMIN-C NATURAL DEVELOPER-Eleonora Shi RN RN iw Mel Abreu RN RN David Lara MD MD ec2 Lyndsey Botello cp4 Christianne Shay, TOBIN RN km8 Maryanne Taylor, RN RN la4 Deana Santos RN RN nw1 Bridget Haney ae5
--- NOTE | 2023-03-29 21:56 | EDPHYS ---
Physician Documentation [facility] Name: Violeta Richardson Age: 38 yrs Sex: Female : 1985 Arrival Date: 03/29/2023 Time: 18:00 Bed 6 Private MD: ED Physician Jorje Yost HPI: 03/29 22:20 This 38 yrs old Female presents to ER via Ambulatory with complaints of Nausea, Blood kb in urine. 22:20 Is a 38-year-old male who presents for abdominal pain for 6 days with difficulty kb urinating, fever, nausea, vomiting and hematuria that started yesterday. Nothing makes pain better or worse.. Historical: - Allergies: 19:17 tramadol; hb - PMHx: 19:17 Hypertension; hb - Immunization history:: Adult Immunizations up to date. - Social history:: Smoking status: Patient denies any tobacco usage or history of. ROS: 22:20 Respiratory: Negative for shortness of breath, cough, wheezing, and pleuritic chest kb pain, 22:20 Constitutional: Positive for chills, fever, 22:20 Abdomen/GI: Positive for abdominal pain, nausea and vomiting, 22:20 : Positive for hematuria, burning with urination, difficulty urinating, 22:20 All other systems are negative, Exam: 20:30 Constitutional: This is a well developed, well nourished patient who is awake, alert, kb and in no acute distress. Head/Face: Normocephalic, atraumatic. ENT: Moist Mucous membranes Cardiovascular: Regular rate Respiratory: Respirations even and unlabored. No increased work of breathing. Talking in full sentences Skin: Warm, dry with normal turgor. Normal color. MS/ Extremity: Pulses equal, no cyanosis. Neurovascular intact. Full, normal range of motion. Neuro: Awake and alert, GCS 15, oriented to person, place, time, and situation. Moves all extremities. Normal gait. 20:30 Abdomen/GI: Inspection: abdomen appears normal, Bowel sounds: normal, Palpation: soft, in all quadrants, mild abdominal tenderness, in the suprapubic area, 20:31 ECG was reviewed by the Attending Physician. kb Vital Signs: 19:15 BP 123 / 98; Pulse 127; Resp 16; Temp 99.9; Pulse Ox 100% ; Weight 47.63 kg; Height 5 hb ft. 1 in. ; 21:58 BP 102 / 66; Pulse 97; Temp 98.8(O); Pulse Ox 100% ; nw1 23:21 BP 119 / 84; Pulse 111; Pulse Ox 100% ; nw1 03/30 01:39 Pulse 102; Temp 102.7; Pulse Ox 97% ; la4 03/29 19:15 Body Mass Index 19.84 (47.63 kg, 154.94 cm) hb Winn Coma Score: 03/29 23:14 Eye Response: spontaneous(4). Motor Response: obeys commands(6). Verbal Response: nw1 oriented(5). Total: 15. MDM: 18:06 Patient medically screened. kb 22:21 Differential diagnosis: Nonspecific abd pain, UTI, kidney stone, pyelonephritis, kb sepsis. Data reviewed: vital signs, nurses notes. Consideration of Admission/Observation Patient was admitted/placed on observation. Escalation of care including admission/observation considered. Management of patient was discussed with the following: Hospitalist: Vikki London NP excepts patient for admission under Dr. Rodríguez. Counseling: I had a detailed discussion with the patient and/or guardian regarding the historical points, exam findings, and any diagnostic results supporting the discharge/admit diagnosis, lab results, radiology results, the need for further work-up and treatment in the hospital. 03/29 18:21 Order name: Blood Culture Adult (2) kb 03/29 18:21 Order name: CBC with Diff; Complete Time: 21:42 kb 03/29 18:21 Order name: CMP; Complete Time: 20:48 kb 03/29 18:21 Order name: Lactate w/ 2H reflex if indic.; Complete Time: 20:48 kb 03/29 18:21 Order name: Protime (+inr); Complete Time: 20:48 kb 03/29 18:21 Order name: Ptt, Activated; Complete Time: 20:48 kb 03/29 18:21 Order name: Urinalysis w/ reflexes; Complete Time: 20:48 kb 03/29 18:21 Order name: Test, Urine; Complete Time: 20:48 kb 03/29 20:45 Order name: Urine Culture EDMS 03/29 21:31 Order name: Manual Differential; Complete Time: 21:42 EDMS 03/29 23:55 Order name: Urinalysis w/ reflexes EDMS 03/29 23:55 Order name: CBC with Automated Diff EDMS 03/29 23:55 Order name: CBC with Automated Diff; Complete Time: 06:51 EDMS 03/29 23:55 Order name: Comprehensive Metabolic Panel EDMS 03/29 23:55 Order name: Comprehensive Metabolic Panel; Complete Time: 06:51 EDMS 03/29 23:55 Order name: Magnesium EDMS 03/29 23:55 Order name: Magnesium; Complete Time: 06:51 EDMS 03/30 00:05 Order name: Flu kb 03/30 00:05 Order name: SARS-COV-2 RT PCR kb 03/30 01:41 Order name: SARS-COV-2 RT PCR; Complete Time: 04:42 EDMS 03/30 01:42 Order name: Influenza Screen (A ; Complete Time: 04:42 EDMS 03/29 18:21 Order name: CT Abd/Pelvis - IV Contrast Only; Complete Time: 21:42 kb 03/29 23:55 Order name: Chest Pa And Lat (2 Views); Complete Time: 16:58 EDMS 03/29 18:21 Order name: EKG; Complete Time: 18:22 kb 03/29 18:21 Order name: Cardiac monitoring; Complete Time: 20:44 kb 03/29 18:21 Order name: EKG - Nurse/Tech; Complete Time: 19:42 kb 03/29 18:21 Order name: IV Saline Lock - Large Bore; Complete Time: 19:45 kb 03/29 18:21 Order name: Labs collected and sent; Complete Time: 19:46 kb 03/29 18:21 Order name: O2 Per Protocol; Complete Time: 20:44 kb 03/29 18:21 Order name: O2 Sat Monitoring; Complete Time: 20:44 kb 03/29 18:21 Order name: Vital Signs; Complete Time: 20:44 kb EC: Rate is 107 beats/min. Rhythm is regular. QRS [place] is Normal. VT interval is normal at kb 130 msec. QRS interval is normal at 78 msec. QT interval is normal at 440 msec. Administered Medications: 20:19 Drug: NS 0.9% IV 1000 ml IV at 1000 ml once Route: IV; Rate: 1000 ml; Site: right nw1 forearm; 20:45 Follow up: Response: No adverse reaction; IV Status: Completed infusion cp4 20:19 Drug: Ondansetron IVP 4 mg IVP once; over 2 minutes Route: IVP; Site: right forearm; nw1 20:44 Follow up: Response: No adverse reaction cp4 20:19 Drug: Ketorolac IVP 15 mg IVP once Route: IVP; Site: right wrist; nw1 20:44 Follow up: Response: No adverse reaction cp4 21:56 Drug: Rocephin IV 1 grams IV at calculated rate once; Given slow IV push per pharmacy nw1 instructions Route: IV; Rate: calculated rate; Site: left forearm; 03/30 02:21 Follow up: IV Status: Completed infusion [facility] 03/29 23:14 Drug: Potassium Chloride IV 20 mEq IV at calculated rate once; administer over 1-2 nw1 hours Route: IV; Rate: calculated rate; Site: left wrist; 03/30 02:20 Follow up: IV Status: Completed infusion [facility] 03/29 23:14 Drug: NS 0.9% IV 1000 ml IV at 125 ml/hr continuous Route: IV; Rate: 125 ml/hr; Site: nw1 left wrist; 03/30 02:21 Follow up: IV Status: Infusion continued upon admission 8 Disposition: 03/31 08:56 Co-signature as Attending Physician, Jorje Yost MD I reviewed the patient's care rn provided by the Advanced Practice Provider and agree with the diagnosis and treatment plan. Disposition Summary: 03/29/23 21:55 Hospitalization Ordered Notes: Hospitalization Status: Observation kb Provider: Cirilo Rodríguez Condition: Stable kb Problem: new kb Symptoms: are unchanged kb Bed/Room Type: Standard Location: Telemetry/MedSurg (observation)(03/30/23 16:56) eb Room Assignment: 417(03/30/23 16:56) eb Diagnosis - Pyelonephritis acute kb - Sepsis, unspecified organism kb Forms: - Medication Reconciliation Form kb - SBAR form kb - Leadership Thank You Letter kb Signatures: Dispatcher [employer] Taylor Carlson, SRAVAN FINNEY-Vikki Restrepo FNP-C FNP-Jorje Paige MD MD rn Attema, Lee, FNP-C FNP-ClaNatalya Myles RN RN cg Baxter, Heather, RN RN hb Botello, Elizabeth eb Tom, Deana, RN RN nw1 Lyndsey Botello cp4 Christianne Shay RN km8 Corrections: (The following items were deleted from the chart) 03/29 22:18 21:55 Telemetry/MedSurg (observation) kb cg : 21:55 kb cg 03/30 16:56 03/29 22:18 [facility] ER HOLD cg eb 03/30 16:56 03/29 22:18 ERHOLD- cg eb
[2023-03-29] MEDS ORDERED: KCL 20 MEQ/100 mL IVPB 100 ML IV ONE (22:59)
[2023-03-29] MEDS ORDERED: PROMETHAZINE 25 MG TABLET PO PRN (23:46)
[2023-03-29] MEDS ORDERED: HYDROCODONE/CHLORPHEN 5 ML/OSYR PO ONE (23:46)
[2023-03-29] MEDS: ACETAMINOPHEN 325 MG TABLET PO PRN (23:50)
[2023-03-30] MEDS ORDERED: HYDROCODONE/CHLORPHEN 5 ML/OSYR ONE (01:25)
[2023-03-30] MEDS ORDERED: ACETAMINOPHEN 325 MG TABLET ONE ×3 (01:25→15:09)
[2023-03-30] MEDS ORDERED: D5.45NS W/KCL 20MEQ 1,000 ML IV ONE ×2 (01:26→11:14)
--- NOTE | 2023-03-30 01:32 | P.HP ---
Certification for Inpatient Patient admitted to: Inpatient With expected LOS: >2 Midnights Patient will require the following post-hospital care: None Practitioner: I am a practitioner with admitting privileges, knowledge of patient current condition, hospital course, and medical plan of care. Services: Services provided to patient in accordance with Admission requirements found in Title 42 Section 412.3 of the Code of Federal Regulations Patient History Date of Service: 03/30/23 Primary Care Provider: None Reason for admission: Pyelonephritis, sepsis, hypokalemia History of Present Illness: This Dylan is a 38-year-old with no medical history. She has had 6 days of suprapubic pain, today she started running fever. She presents to the emergency department tachycardic, febrile, complaining of pain. She is noted to have a consistent cough on exam. Evaluation in the emergency department reveals a white count of 22.4 thousand with a left shift, segs at 87%, bands 2%. Blood cultures were obtained and patient received 1 L of normal saline and 1 g of Rocephin IV. CT evaluation of the abdomen and pelvis reveal pyelonephritis. Allergies tramadol Allergy (Verified 03/30/23 03:16) Itching Home medications list reviewed: Yes (None) Home Medications: Melatonin 10 - 20 mg PO BEDTIME 03/30/23 - Past Medical/Surgical History Has patient received pneumonia vaccine in the past: No Diabetic: No Psychosocial/ Personal History: Patient lives alone - Family History Mother -: Heart disease - Social History Smoking Status: Light Tobacco smoker (1-9 cigarettes/day) Patient receptive to therapy: No Alcohol use: Yes CD- Drugs: No Caffeine use: Yes Place of Residence: Home Review of Systems 10-point ROS is otherwise unremarkable General: Fever, Malaise Respiratory: Cough Cardiovascular: Light Headedness Genitourinary: As per HPI Physical Examination - Vital Signs Temperature: 100.8 F Blood Pressure: 102/66 Pulse: 122 Respirations: 24 Pulse Ox (%): 100 - Physical Exam General: Alert, Oriented x3, Mild distress HEENT: Atraumatic, PERRLA Neck: Supple, 2+ carotid pulse no bruit Respiratory: Clear to auscultation bilaterally, Other (Paroxysmal cough) Cardiovascular: Regular rate/rhythm, Other (Tachycardia) Capillary refill: <2 Seconds Gastrointestinal: Normal bowel sounds, Soft and benign, Other (Mild right flank pain) Musculoskeletal: No clubbing Integumentary: No rashes Neurological: Normal speech, Normal tone External genitalia: Deferred Rectal: Deferred - Studies Laboratory Data (last 24 hrs) 03/29/23 03/29/23 03/29/23 20:15 20:15 20:15 WBC 22.40 H Hgb 13.0 Hct 37.8 Plt Count 326 PT 13.1 H INR 1.20 APTT 30.8 Sodium 134 L Potassium 3.0 L BUN 15 Creatinine 0.67 Glucose 142 H Total Bilirubin 0.6 AST 73 H ALT 111 H Alkaline Phosphatase 111 Assessment and Plan - Plan Pyelonephritis Blood cultures pending Rocephin 1g IV twice daily Sepsis Sepsis fluids given in the ER Will continue hydration while inpatient Monitor vital signs including temperature Hypokalemia 20 mEq IV given in the ER Will start 0.45% NS with 20 of KCL at 125 mL an hour Monitor and replenish electrolytes as needed - Advance Directives Does patient have a Living Will: No Does patient have a Durable POA for Healthcare: No
[2023-03-30] MEDS: D5.45NS W/KCL 20MEQ 1,000 ML IV SCH ×5 (02:21→23:49)
[2023-03-30 02:26] VITALS: BMI 19.8
[2023-03-30 04:48] LABS: Absolute Lymphocytes (CBC) 1.1 K/uL (0.7-4.9); Hematocrit 34.9 % (36.0-45.0); MCV 92.4 fL (80-100); MPV 8.2 fL (7.6-11.3); Platelets 250 thou/uL (152-406); RBC Red Blood Cell Count 3.78 M/uL (3.86-4.86)
[2023-03-30 05:12] LABS: Albumin 2.5 g/dL (3.4-5.0); Bilirubin Total 0.4 mg/dL (0.2-1.0); Magnesium 1.8 mg/dL (1.6-2.4); Potassium 3.5 mEq/L (3.5-5.1); Protein, Total 6.3 g/dL (6.4-8.2)
[2023-03-30] MEDS ORDERED: POTASSIUM 25 MEQ EFFERV TAB PO ONE (06:24)
[2023-03-30] MEDS ORDERED: POTASSIUM 25 MEQ EFFERV TAB ONE (06:33)
[2023-03-30] MEDS ORDERED: ONDANSETRON 4 MG/2 ML VIAL ONE (06:55)
[2023-03-30] MEDS ORDERED: ONDANSETRON 4 MG/2 ML VIAL IV ONE (06:59)
[2023-03-30] MEDS: ACETAMINOPHEN 325 MG TABLET PO PRN ×2 (07:00→23:49)
[2023-03-30] MEDS ORDERED: PHENAZOPYRIDINE 100MG TAB PO PRN (07:26)
[2023-03-30] MEDS ORDERED: IBUPROFEN 200 MG TAB PO ONE (07:27)
[2023-03-30] MEDS ORDERED: ONDANSETRON 4 MG/2 ML VIAL IV PRN (07:27)
[2023-03-30] MEDS: IBUPROFEN 400 MG TAB PO ONE ×2 (07:39→07:43)
[2023-03-30] MEDS ORDERED: NA CHLORIDE 0.9% 1,000 ML IV ONE (07:45)
[2023-03-30] MEDS: HYDROCODONE/APAP 5/325 MG TAB PO PRN ×3 (07:45→20:33)
[2023-03-30] MEDS: ENOXAPARIN 40 MG/0.4 ML SQ SCH (09:00)
[2023-03-30] MEDS: CEFTRIAXONE 1,000 MG in NA CHLORIDE 0.9% 50 ML IVPB SCH ×2 (09:00→20:36)
--- NOTE | 2023-03-30 09:00 | RAD REPORT ---
EXAM DESCRIPTION: RAD - Chest Pa And Lat (2 Views) - 03/30/2023 8:11 am CLINICAL HISTORY: sepsis, cough Chest pain. COMPARISON: <Comparisons> FINDINGS: The lungs are clear. The heart is normal in size. No displaced fractures. IMPRESSION: No acute or concerning finding suspected.
--- NOTE | 2023-03-30 10:02 | P.PN ---
Date of Service: 03/30/23 Subjective: Still having lower abdominal pain/dysuria Stabbing fever/chills No acute events overnight ROS: 10 point ROS as noted above, otherwise negative Physical exam GEN: Alert, oriented, NAD HEENT: Normal conjunctiva, sclera anicteric CV: Regular rate and rhythm, no edema Pulm: Nonlabored respirations on room air ABD: Soft, mild lower abdominal tenderness, nondistended MSK: No joint tenderness Integumentary: No rashes Neuro: Normal speech, normal affect Vitals reviewed Problem List Sepsis secondary to pyelonephritis Hypokalemia COVID-19 positive Plan Sepsis secondary to pyelonephritis Continue IV fluids, empiric antibiotics with Rocephin Follow urine/blood cultures Still febrile Hypokalemia Continue potassium continue IV fluids, potassium replacement protocol COVID-19 positive Isolation precautions As needed cough medication VTE: Lovenox Code: Full Dispo: 2 to 3 days pending cultures Time Spent Managing Pts Care (In Minutes): 35
[2023-03-30] MEDS ORDERED: CEFTRIAXONE 1000 MG/VIAL ONE (11:13)
[2023-03-30] MEDS ORDERED: ENOXAPARIN 40 MG/0.4 ML SQ ONE (11:14)
[2023-03-30] MEDS ORDERED: HYDROCODONE/APAP 5/325 MG TAB ONE ×2 (14:29→14:46)
[2023-03-30] MEDS ORDERED: DIPHENHYDRAMINE 50 MG/ML VIAL ONE (15:09)
[2023-03-30] MEDS ORDERED: KETOROLAC 30 MG/ML INJ ONE (15:09)
[2023-03-30] MEDS ORDERED: METOCLOPRAMIDE 10 MG/2mL INJ ONE (15:10)
[2023-03-30] MEDS ORDERED: BENZONATATE 100 MG CAP PO ONE (15:10)
[2023-03-30] MEDS: KETOROLAC 30 MG/ML INJ IV ONE ×2 (15:12→15:24)
[2023-03-30] MEDS: DIPHENHYDRAMINE 50 MG/ML VIAL IV ONE ×2 (15:12→15:24)
[2023-03-30] MEDS: BENZONATATE 100 MG CAP PO PRN ×2 (15:24→23:49)
[2023-03-30] MEDS ORDERED: METOCLOPRAMIDE 10 MG/2mL INJ IV SCH (16:00)
[2023-03-30] MEDS ORDERED: NA CHLORIDE 0.9% 1,000 ML ONE (17:56)
[2023-03-31 06:02] LABS: Absolute Lymphocytes (CBC) 1.4 K/uL (0.7-4.9); Hematocrit 32.6 % (36.0-45.0); MCV 92.5 fL (80-100); Platelets 254 thou/uL (152-406); RBC Red Blood Cell Count 3.52 M/uL (3.86-4.86)
[2023-03-31 06:09] LABS: Albumin 2.2 g/dL (3.4-5.0); Bilirubin Total 0.2 mg/dL (0.2-1.0); Potassium 3.8 mEq/L (3.5-5.1); Protein, Total 6.1 g/dL (6.4-8.2)
[2023-03-31] MEDS: HYDROCODONE/APAP 5/325 MG TAB PO PRN ×3 (06:24→19:56)
[2023-03-31] MEDS: ENOXAPARIN 40 MG/0.4 ML SQ SCH ×2 (07:48→07:59)
[2023-03-31] MEDS: CEFTRIAXONE 1,000 MG in NA CHLORIDE 0.9% 50 ML IVPB SCH ×2 (07:48→19:57)
[2023-03-31] MEDS: D5.45NS W/KCL 20MEQ 1,000 ML IV SCH ×2 (07:51→15:45)
[2023-03-31] MEDS ORDERED: POTASSIUM CL SA 10 MEQ TAB PO ONE (09:00)
--- NOTE | 2023-03-31 09:29 | P.PN ---
Date of Service: 03/31/23 Subjective: Still having lower abdominal pain/dysuria Fever again overnight WBC improving ROS: 10 point ROS as noted above, otherwise negative Physical exam GEN: Alert, oriented, NAD HEENT: Normal conjunctiva, sclera anicteric CV: Regular rate and rhythm, no edema Pulm: Nonlabored respirations on room air ABD: Soft, mild lower abdominal tenderness, nondistended MSK: No joint tenderness Integumentary: No rashes Neuro: Normal speech, normal affect Vitals reviewed Problem List Sepsis secondary to pyelonephritis Hypokalemia COVID-19 positive Plan Sepsis secondary to pyelonephritis Continue IV fluids, empiric antibiotics with Rocephin blood culture NGTB awaiting urine culture Still febrile Hypokalemia Continue potassium continue IV fluids, potassium replacement protocol COVID-19 positive Isolation precautions As needed cough medication VTE: Lovenox Code: Full Dispo: 1 to 2 days pending cultures, fever free Time Spent Managing Pts Care (In Minutes): 35
[2023-03-31] MEDS ORDERED: SMZ./TMP. 800/160 MG TABLET PO ONE (09:30)
[2023-03-31] MEDS: SMZ./TMP. 800/160 MG TABLET PO SCH ×2 (10:16→19:56)
[2023-03-31] MEDS: BENZONATATE 100 MG CAP PO PRN ×2 (13:00→19:57)
[2023-03-31] MEDS: ACETAMINOPHEN 325 MG TABLET PO PRN (14:06)
[2023-04-01] MEDS: ENOXAPARIN 40 MG/0.4 ML SQ SCH (08:23)
[2023-04-01] MEDS: CEFTRIAXONE 1,000 MG in NA CHLORIDE 0.9% 50 ML IVPB SCH (08:23)
[2023-04-01] MEDS: SMZ./TMP. 800/160 MG TABLET PO SCH (08:23)
[2023-04-01 08:53] VITALS: BP 141/87; TEMP 98.3
[2023-04-01 10:15] VITALS: O2SAT 99
--- NOTE | 2023-04-01 10:21 | P.DS ---
Admission Date: 03/29/23 Discharge Date: 04/01/23 Primary Care Provider: None Disposition: ROUTINE DISCHARGE Discharge Condition: GOOD Reason for Admission: Pyelonephritis, sepsis, hypokalemia Brief History of Present Illness: This Dylan is a 38-year-old with no medical history. She has had 6 days of suprapubic pain, today she started running fever. She presents to the emergency department tachycardic, febrile, complaining of pain. She is noted to have a consistent cough on exam. Evaluation in the emergency department reveals a white count of 22.4 thousand with a left shift, segs at 87%, bands 2%. Blood cultures were obtained and patient received 1 L of normal saline and [address] IV. CT evaluation of the abdomen and pelvis reveal pyelonephritis. Hospital Course: Problem List Sepsis secondary to pyelonephritis-urine culture with E. coli, Staph aureus Hypokalemia COVID-19 positive Patient was admitted for pyelonephritis, COVID-19 viral illness. She was febrile for the first 48 hours. Blood cultures with no growth, urince culture with E.coli and Staph aureus both sensitive to bactrim. She has now been fever free and feeling much better. Stable for discharge. Please observe droplet/contact precautions for your viral illness/COVID, wear a mask and wash your hands frequently. New prescriptions Bactrim DS one pill twice daily for 7 days Tessalon pearle 100mg as needed three times daily for cough Please follow up with PCP in 1-2 weeks. Vital Signs/Physical Exam: Temp Pulse Resp BP Pulse Ox 98.3 F 75 16 141/87 H 99 04/01/23 08:00 04/01/23 08:00 04/01/23 08:00 04/01/23 08:00 04/01/23 08:00 General: Alert, In no apparent distress, Oriented x3 HEENT: Atraumatic, PERRLA Neck: Supple, JVD not distended Respiratory: Clear to auscultation bilaterally, Normal air movement Cardiovascular: Regular rate/rhythm, Normal S1 S2 Gastrointestinal: Normal bowel sounds, No tenderness Musculoskeletal: No tenderness Integumentary: No rashes Neurological: Normal speech Laboratory Data at Discharge: WBC 15.90 thou/uL (4.3-10.9) H 03/31/23 05:20 Hgb 11.0 g/dL (12.0-15.0) L D 03/31/23 05:20 Hct 32.6 % (36.0-45.0) L 03/31/23 05:20 Plt Count 254 thou/uL (152-406) 03/31/23 05:20 PT 13.1 SECONDS (9.5-12.5) H 03/29/23 20:15 INR 1.20 03/29/23 20:15 APTT 30.8 SECONDS (24.3-36.9) 03/29/23 20:15 Sodium 139 mEq/L (136-145) 03/31/23 05:20 Potassium 3.8 mEq/L (3.5-5.1) 03/31/23 05:20 BUN 8 mg/dL (7-18) 03/31/23 05:20 Creatinine 0.52 mg/dL (0.55-1.02) L 03/31/23 05:20 Glucose 131 mg/dL (74-106) H 03/31/23 05:20 Magnesium 1.8 mg/dL (1.6-2.4) 03/30/23 04:20 Total Bilirubin 0.2 mg/dL (0.2-1.0) 03/31/23 05:20 AST 26 U/L (15-37) 03/31/23 05:20 ALT 55 U/L (13-56) 03/31/23 05:20 Alkaline Phosphatase 101 U/L (45-117) 03/31/23 05:20 Home Medications: Melatonin 10 - 20 mg PO BEDTIME 03/30/23 Benzonatate [Tessalon Perle] 100 mg PO TID PRN #30 cap 04/01/23 Smz./Tmp. [Bactrim Ds 800 MG/160 MG] 1 tab PO BID 7 Days #14 tab 04/01/23 New Medications: Smz./Tmp. [Bactrim Ds 800 MG/160 MG] 1 tab PO BID 7 Days #14 tab Benzonatate [Tessalon Perle] 100 mg PO TID PRN #30 cap PRN Reason: Cough Physician Discharge Instructions: Patient was admitted for pyelonephritis, COVID-19 viral illness. She was febrile for the first 48 hours. Blood cultures with no growth, urince culture with E.coli and Staph aureus both sensitive to bactrim. She has now been fever free and feeling much better. Stable for discharge. Please observe droplet/contact precautions for your viral illness/COVID, wear a mask and wash your hands frequently. New prescriptions Bactrim DS one pill twice daily for 7 days Tessalon pearle 100mg as needed three times daily for cough Please follow up with PCP in 1-2 weeks. Diet: Regular Activity: Ad omaira Time spent managing pt's care (in minutes): 25
--- NOTE | 2023-04-04 13:59 | EKG ---
Test Date: 2023-03-29 Test Time: 19:38:29 Formula Weigher: CLYDE MEASUREMENT RESULTS: Intervals: Rate: 107 LA: 130 QRSD: 78 QT: 330 QTc: 440 [place]: P: 84 LA: 130 QRS: 79 T: 75 INTERPRETIVE STATEMENTS: Sinus tachycardia Right atrial enlargement Moderate voltage criteria for LVH, may be normal variant Borderline ECG Compared to ECG 11/03/2021 10:55:11 Atrial abnormality now present Left ventricular hypertrophy now present Sinus rhythm no longer present Electronically Signed On 04-04-23 13:46:05 [employer]ILDC[employer] ADMINISTRATOR by Clay Corley
== END 2023-04-01 10:35 | disposition home or self-care (01) | DRG 871 ==
LOC: ER 18:00 → ERHOLD 23:46 → 4TH 03-30 17:58
PROVIDERS: ADMIT Internal Medicine; ATTEND Hospitalist
DX: A41.51 Sepsis due to Escherichia coli [E. coli] (principal); U07.1 COVID-19; N10 Acute pyelonephritis; A41.01 Sepsis due to Methicillin susceptible Staphylococcus aureus; I10 Essential (primary) hypertension; E87.6 Hypokalemia; F17.210 Nicotine dependence, cigarettes, uncomplicated; Z88.5 Allergy status to narcotic agent
CPT/HCPCS: 36415; 71046; 74177; 80053; 81001; 81025; 83605; 83735; 85025; 85610; 85730; 87040; 87077; 87086; 87088; 87186; 87635; 87804; 93005; 99285; J0696; J1200; J1650; J2405; J2765; J3480; J7030; Q9967